=== PATIENT | female | born 1995 | race Caucasian/White ===

== ENCOUNTER → 2024-07-10 13:05 | Outpatient (CLI) | payer OTHER, SELFPAY ==
--- NOTE | 2024-07-10 13:09 | DI.RAD.S_ITS ---
PROCEDURE: FL ARTHROGRAM SHOULDER LT INDICATIONS: WORSENING LEFT SHOULDER PAIN COMPARISON: [facility], MR, MR SHOULDER LT W CON, 07/10/2024, 14:04. TECHNIQUE: The indications, alternatives, benefits, risks, and complications of the procedure were explained to the patient. Written informed consent was obtained and placed in the chart. The shoulder was examined fluoroscopically and a site for needle placement chosen for entry into the glenohumeral joint from an anterior approach. The skin was prepped and draped in a sterile fashion, and 1% lidocaine infiltrated from skin down to joint capsule. A spinal needle was inserted into the glenohumeral joint, and a small amount of iodinated contrast media injected to confirm intra-articular placement of the needle tip. This was followed by approximately 12 mL dilute solution of a gadolinium containing MR contrast agent. The needle was removed and a dressing was applied. The patient was given postprocedural instructions and sent to the MR suite for MR imaging. FINDINGS: A single fluoroscopic spot image demonstrates intra-articular location of injected iodinated contrast. IMPRESSION: Successful fluoroscopically guided administration of dilute Gadolinium solution into the shoulder joint for MR arthrogram. Dictated by: Rissa Kauffman M.D. on 07/10/2024 at 16:35 Approved by: Rissa Kauffman M.D. on 07/10/2024 at 16:35
--- NOTE | 2024-07-10 13:09 | DI.MRI.S_ITS ---
PROCEDURE: MR SHOULDER LT W CON INDICATIONS: WORSENING LEFT SHOULDER PAIN TECHNIQUE: After the administration of 12 mL of dilute intra-articular Gadolinium contrast, oblique coronal T1 and T2 spin echo with fat saturation, oblique sagittal T1 spin echo with and without fat saturation, oblique sagittal T2 fast spin echo with fat saturation, axial T1 spin echo with fat saturation through the shoulder. COMPARISON: None. FINDINGS: Image quality: Excellent. Rotator cuff: Low-grade articular surface partial-thickness tear involving distal supraspinatus at its insertion on the humeral head is seen extending to musculotendinous junction. Distal infraspinatus and subscapularis tendinosis. No full-thickness rotator cuff tendon rupture. No rotator cuff muscle atrophy on sagittal images. Bones and bursae: No bone marrow contusions or fractures. No acromioclavicular joint degeneration. Type 1 acromion without an os acromiale. Capsule and soft tissues: Deformity and contrast extension involving posterior glenoid labrum suggestive of posterior superior labral tear. The glenohumeral ligaments appear intact. The long head of the biceps tendon demonstrates normal location and morphology. No intra-articular bodies. IMPRESSION: 1. Low-grade articular surface partial-thickness tear involving distal supraspinatus extending to musculotendinous junction. Distal infraspinatus and subscapularis tendinosis. No full-thickness rotator cuff tendon rupture. 2. No marrow edema. No fracture or dislocation. No intra-articular loose bodies. 3. Finding is suggestive of posterior glenoid labral tear. Dictated by: Paramjit Burden M.D. on 07/10/2024 at 20:05 Approved by: Paramjit Burden M.D. on 07/10/2024 at 20:12
== END ==
DX: M75.112 Incomplete rotator cuff tear or rupture of left shoulder, not specified as traumatic (principal); M25.512 Pain in left shoulder
CPT/HCPCS: 23350; 73040; 73222; A9579; Q9967